=== PATIENT | male | born 1980 | race Caucasian/White ===

== ENCOUNTER 2021-09-06 17:12 | Emergency (ER) | payer MEDICAID ==
[~2021-09-06] VITALS: Ht 177.8 cm; Wt 86.2 kg
[~2021-09-06 17:12] MED LIST: AMOX-426 PO; DOCU-144 PO; IBUP-23 PO; SUMA100T PO; ZOLP10TA2 PO
[2021-09-06 17:30] VITALS: BP_SYST 146
--- NOTE | 2021-09-06 17:30 | NUR ---
Placed in room 2 . Placed on security monitor, blood pressure machine and pulse oximeter. To gown for exam. Side rails up. Report given to JERE YING.
--- NOTE | 2021-09-06 18:50 | NUR ---
Dr. Eddy at bedside.
--- NOTE | 2021-09-06 18:52 | NUR ---
lab at bedside
[2021-09-06] MEDS ORDERED: MORPHINE 4 MG INJ. 4 MG/ML VIAL IM ONE (19:00)
--- NOTE | 2021-09-06 19:08 | NUR ---
report to ladi brito
--- NOTE | 2021-09-06 19:08 | NUR ---
Pt AAOx4, verbalizes improvement in pain. No needs verbalized at this time.
[2021-09-06 19:22] LABS: BASOPHILS % (AUTO) 0.4 % (0.0-2.0); EOSINOPHILS # (AUTO) 0.1 K/uL (0.0-0.4); EOSINOPHILS % (AUTO) 0.6 % (0.0-4.0); HEMATOCRIT 42.7 % (36-54); HEMOGLOBIN 14.7 g/dL (14.0-18.0); LYMPHOCYTES # (AUTO) 2.1 K/uL (1.0-5.5); MEAN CORPUSCULAR HEMOGLOBIN 33 pg (27-31); MEAN CORPUSCULAR HGB CONC 35 % (32-36); MEAN CORPUSCULAR VOLUME 95 fL (79.0-98.0); MONOCYTES # (AUTO) 0.5 K/uL (0.0-1.0); MONOCYTES % (AUTO) 5.9 % (1.7-9.3); NEUTROPHILS # (AUTO) 6.3 K/uL (1.8-7.7); NEUTROPHILS % (AUTO) 70.1 % (40.0-70.0); PLATELET COUNT (AUTO) 297 K/uL (130-430); RED CELL DISTRIBUTION WIDTH 12.9 % (9.0-15.0)
[2021-09-06 19:38] LABS: PROTHROMBIN TIME 10.1 SECS (9.5-12.5)
[2021-09-06 19:40] LABS: CALCIUM 8.9 mg/dL (8.4-11.0); CREATININE 1.09 mg/dL (0.55-1.30); POTASSIUM 3.3 mmol/L (3.5-5.1)
[2021-09-06 19:46] LABS: ALBUMIN 4.5 g/dL (3.4-4.8); TOTAL BILIRUBIN 0.3 mg/dL (0.0-1.0)
[2021-09-06] MEDS ORDERED: OMEP20CA15 PO (20:11)
[2021-09-06] MEDS ORDERED: HYDR-3917 PO (20:11)
--- NOTE | 2021-09-06 20:34 | NUR ---
Patient given written and verbal discharge instructions and verbalizes understanding. ER MD discussed with patient the results and treatment provided. Patient in stable condition. ID arm band removed. Rx of norco and omeprazole sent electronically to preferred pharmacy. Patient educated on pain management and to follow up with PMD. Pain Scale 3/10. Opportunity for questions provided and answered. Medication side effect fact sheet provided.
[2021-09-07] VITALS: BP_SYST 121
--- NOTE | 2021-09-07 | NUR ---
Note niranjan in EDM - 09/07/21 at 0149 by [email or web address] Patient will be admitted to care of Dr. Sorto. Admitted to Tele unit. Will go to room 119B. Belongings list completed. Complete and up to date summary report printed. SBAR report to be given at bedside with opportunity for questions.
== END 2021-09-06 20:34 | disposition home or self-care (01) ==
LOC: MERGE 17:12 → SED 17:12
DX: K62.5 Hemorrhage of anus and rectum (principal); R10.84 Generalized abdominal pain
CPT/HCPCS: 36415; 74176; 76376; 80053; 82150; 83690; 85025; 85610; 85730; 86886; 86900; 86901; 96372; 99284; J2270

== ENCOUNTER 2021-10-23 06:17 | Emergency (ER) | payer MEDICAID ==
[~2021-10-23 06:17] MED LIST changes: +HYDR-3917 PO; +OMEP20CA15 PO
--- NOTE | 2021-10-23 07:00 | NUR ---
NO ANSWER LWBS
== END 2021-10-23 07:00 | disposition left against medical advice (07) ==
LOC: SED 06:17
DX: R53.1 Weakness (principal); Z53.21 Procedure and treatment not carried out due to patient leaving prior to being seen by health care provider

== ENCOUNTER 2021-10-24 15:39 | Emergency (ER) | payer MEDICAID, SELFPAY ==
[~2021-10-24] VITALS: Ht 177.8 cm; Wt 86.2 kg
[2021-10-24 15:41] VITALS: BP_SYST 145
--- NOTE | 2021-10-24 15:45 | NUR ---
Pt moved to bed 8 for evaluation.
--- NOTE | 2021-10-24 15:50 | NUR ---
Pt AAO and ambulatory reporting that he drank an entire botttle of nyquil otc over a 24 hour period. Pt reports feeling chills, anxiety, and stated that he took it because he wanted to sleep. Pt denies any suicidal ideation. Pt reports history of seizures. Pt also states that he was seen at [facility] yesterday for the same problem but left. Pt displaying restless and anxious type behavior. Denies history of psych.
--- NOTE | 2021-10-24 15:55 | NUR ---
Dr. Bruno to bedside to assess.
--- NOTE | 2021-10-24 16:10 | NUR ---
Lab at bedside for blood draw.
--- NOTE | 2021-10-24 16:15 | NUR ---
Urine specimen obtained and sent to lab for analysis.
[2021-10-24 16:25] LABS: ANION GAP 7 (5-15); CALCIUM 10.4 mg/dL (8.4-11.0); CHLORIDE 103 mmol/L (98-107); CREATININE 0.97 mg/dL (0.55-1.30); GLUCOSE 103 mg/dL (70-99); POTASSIUM 3.9 mmol/L (3.5-5.1); SODIUM SERUM 137 mmol/L (136-145); UREA NITROGEN, BLOOD 10 mg/dL (8-21)
[2021-10-24 16:31] LABS: ALANINE AMINOTRANSFERASE 46 U/L (12-78); ALBUMIN 4.6 g/dL (3.4-4.8); ALCOHOL, BLOOD 3 mg/dL (<10); ASPARTATE AMINOTRANSFERASE 29 U/L (10-37); TOTAL BILIRUBIN 0.4 mg/dL (0.0-1.0)
[2021-10-24 16:38] LABS: ACETAMINOPHEN < 1 ug/mL (1-30); GFR AFRICAN AMERICAN 111 mL/min (>90)
[2021-10-24] MEDS ORDERED: ALPRAZolam 0.25 MG TABLET PO ONE (17:15)
[2021-10-24 17:42] LABS: BARBITURATE, URINE NEGATIVE (NEG <=200); BENZODIAZEPINE, URINE NEGATIVE (NEG <=150); COCAINE, URINE NEGATIVE (NEG <=150); METHAMPHETAMINES SCREEN,URINE NEGATIVE (NEG <=500); URINE AMPHETAMINE NEGATIVE (NEG <=500); URINE METHADONE NEGATIVE (NEG <=200)
[2021-10-24 17:45] LABS: CANNABINOID, URINE POSITIVE (NEG <=50); OPIATE, URINE NEGATIVE (NEG <=100); PHENCYCLIDINE SCREEN,URINE NEGATIVE (NEG <=25); UR TRICYCLIC ANTIDEPRESSANTS NEGATIVE (NEG <=300); URINE OXYCODONE SCREEN NEGATIVE (NEG <=100); URINE PROPOXYPHENE SCREEN NEGATIVE (NEG <=300)
--- NOTE | 2021-10-24 18:30 | NUR ---
Pt reports feeling much better and is awaiting disposition.
[2021-10-24] MEDS ORDERED: ACETAMINOPHEN 325 MG TABLET PO ONE (18:45)
--- NOTE | 2021-10-24 18:51 | NUR ---
Pt given tylenol for headache pain-see NOV. Pt reports that anxiety has resolved. Pt awaiting disposition.
--- NOTE | 2021-10-24 19:14 | NUR ---
Report to JERE Waite.
[2021-10-24] MEDS ORDERED: NS 500 ML IV ONE (19:30)
[2021-10-24 20:25] VITALS: BP_SYST 150
--- NOTE | 2021-10-24 20:26 | NUR ---
Patient given written and verbal discharge instructions and verbalizes understanding. ER MD discussed with patient the results and treatment provided. Patient in stable condition. ID arm band removed. No Rx given. Patient educated on pain management and to follow up with PMD. Pain Scale 0/10. Opportunity for questions provided and answered. Medication side effect fact sheet provided.
[2021-10-24 22:04] LABS: BASOPHILS # (AUTO) 0.1 K/uL (0.0-0.2); BASOPHILS % (AUTO) 0.9 % (0.0-2.0); EOSINOPHILS # (AUTO) 0.1 K/uL (0.0-0.4); EOSINOPHILS % (AUTO) 0.6 % (0.0-4.0); HEMATOCRIT 49.7 % (36-54); HEMOGLOBIN 16.9 g/dL (14.0-18.0); LYMPHOCYTES # (AUTO) 2.3 K/uL (1.0-5.5); LYMPHOCYTES % (AUTO) 26.1 % (20.5-51.5); MEAN CORPUSCULAR HEMOGLOBIN 32 pg (27-31); MEAN CORPUSCULAR HGB CONC 34 % (32-36); MEAN CORPUSCULAR VOLUME 94 fL (79.0-98.0); MONOCYTES # (AUTO) 0.4 K/uL (0.0-1.0); NEUTROPHILS # (AUTO) 6.1 K/uL (1.8-7.7); NEUTROPHILS % (AUTO) 68.4 % (40.0-70.0); PLATELET COUNT (AUTO) 251 K/uL (130-430); RED BLOOD CELL COUNT(AUTO) 5.28 MIL/uL (4.2-6.2); RED CELL DISTRIBUTION WIDTH 12.7 % (9.0-15.0); WHITE BLOOD COUNT (AUTO) 8.9 K/uL (4.8-10.8)
== END 2021-10-24 20:25 | disposition home or self-care (01) ==
LOC: SED 15:39
DX: T45.0X4A Poisoning by antiallergic and antiemetic drugs, undetermined, initial encounter (principal); F41.9 Anxiety disorder, unspecified; F45.9 Somatoform disorder, unspecified; Z20.822 Contact with and (suspected) exposure to COVID-19; Z79.899 Other long term (current) drug therapy; Y93.9 Activity, unspecified; Y92.9 Unspecified place or not applicable; Y99.9 Unspecified external cause status
CPT/HCPCS: 36415; 80053; 80307; 85025; 87426; 93005; 99285; G0480; G0481; G0482

== ENCOUNTER 2022-02-03 03:43 | Emergency (ER) | payer MEDICAID ==
[~2022-02-03] VITALS: Ht 175.3 cm; Wt 79.4 kg
--- NOTE | 2022-02-03 04:04 | NUR ---
Patient to ER bed 2 to gown for evaluation. Side rails up. Report given to MARCO ANTONIO OQUENDO
--- NOTE | 2022-02-03 04:24 | NUR ---
DR PETERSON IN ROOM FOR EXAM
[2022-02-03] MEDS ORDERED: PANTOPRAZOLE SODIUM 40 MG/VIAL (PROTONIX) IVP ONE (04:30)
[2022-02-03] MEDS ORDERED: NACL 0.9% 1,000 ML IV ONE (04:30)
[2022-02-03] MEDS ORDERED: METOCLOPRAMIDE HCL 10 MG/2 ML VIAL IVP ONE (04:30)
[2022-02-03] MEDS ORDERED: MORPHINE 4 MG INJ. 4 MG/ML VIAL IVP ONE (04:30)
--- NOTE | 2022-02-03 04:30 | NUR ---
Initial assessment by JERE So 41yo male PMH hernia, Etoh user, here c/o abd spasm pain 04/08. Poor historian. Pt appears anxious, continue with generalized body shaking. + hand tremors, + tongue fasciculation. Last alcohol intake 2 days ago. Afib on monitor with HR 89-130. Tachypneic RR 33 in room air. Diaphoretic. Temp 97.2. tender and guarding to abd. MD Miguel at bedside. Pending MD burger. Will continue to monitor. Addendum: 02/03/22 at 0507 by [email or web address] HR on monitor Ammended by JERE So Noted multiple artifacts on heart rhythm due to pt continuously have generalized body shaking movement.
[2022-02-03] MEDS ORDERED: LORazepam 2 MG/ML VIAL IVP ONE ×2 (05:00→07:00)
[2022-02-03 05:16] LABS: CALCIUM 9.3 mg/dL (8.4-11.0); CREATININE 1.53 mg/dL (0.55-1.30); POTASSIUM 3.3 mmol/L (3.5-5.1)
[2022-02-03 05:22] LABS: ALBUMIN 4.2 g/dL (3.4-4.8); TOTAL BILIRUBIN 0.8 mg/dL (0.0-1.0)
[2022-02-03 06:02] LABS: BASOPHILS # (AUTO) 0.1 K/uL (0.0-0.2); BASOPHILS % (AUTO) 0.7 % (0.0-2.0); EOSINOPHILS # (AUTO) 0.3 K/uL (0.0-0.4); EOSINOPHILS % (AUTO) 3.2 % (0.0-4.0); HEMATOCRIT 50.6 % (36-54); HEMOGLOBIN 17.6 g/dL (14.0-18.0); LYMPHOCYTES # (AUTO) 3.4 K/uL (1.0-5.5); LYMPHOCYTES % (AUTO) 39.4 % (20.5-51.5); MEAN CORPUSCULAR HEMOGLOBIN 34 pg (27-31); MEAN CORPUSCULAR HGB CONC 35 % (32-36); MEAN CORPUSCULAR VOLUME 97 fL (79.0-98.0); MONOCYTES # (AUTO) 0.7 K/uL (0.0-1.0); MONOCYTES % (AUTO) 8.4 % (1.7-9.3); NEUTROPHILS # (AUTO) 4.2 K/uL (1.8-7.7); NEUTROPHILS % (AUTO) 48.3 % (40.0-70.0); PLATELET COUNT (AUTO) 313 K/uL (130-430); RED BLOOD CELL COUNT(AUTO) 5.24 MIL/uL (4.2-6.2); RED CELL DISTRIBUTION WIDTH 13.7 % (9.0-15.0); WHITE BLOOD COUNT (AUTO) 8.6 K/uL (4.8-10.8)
--- NOTE | 2022-02-03 06:20 | NUR ---
Reassessment by JERE So Pt awake, alert, calm, and stated feels better. Denies any pain at this time. Non diaphoretic. Currently pt is off unit, taken for CT abd/ pelvis.
[2022-02-03] MEDS ORDERED: chlordiazePOXIDE HCL 25 MG CAPSULE PO ONE (07:00)
[2022-02-03] MEDS ORDERED: POTASSIUM CHLORIDE 20 MEQ TAB.PRT.SR PO ONE (07:00)
[2022-02-03 07:11] LABS: HEMATOCRIT 42.6 % (36-54); HEMOGLOBIN 14.8 g/dL (14.0-18.0); MEAN CORPUSCULAR HEMOGLOBIN 34 pg (27-31); MEAN CORPUSCULAR HGB CONC 35 % (32-36); MEAN CORPUSCULAR VOLUME 97 fL (79.0-98.0); PLATELET COUNT (AUTO) 258 K/uL (130-430); RED CELL DISTRIBUTION WIDTH 13.5 % (9.0-15.0); WHITE BLOOD COUNT (AUTO) 7.5 K/uL (4.8-10.8)
--- NOTE | 2022-02-03 07:17 | NUR ---
Report was given to JERE Kraft
--- NOTE | 2022-02-03 08:48 | NUR ---
Stable in ER 2 Mild S/S of ETOH withdrawal Medicated as ordered
[2022-02-03 11:23] LABS: HEMATOCRIT 46.3 % (36-54); HEMOGLOBIN 15.9 g/dL (14.0-18.0); MEAN CORPUSCULAR HEMOGLOBIN 34 pg (27-31); MEAN CORPUSCULAR HGB CONC 34 % (32-36); MEAN CORPUSCULAR VOLUME 98 fL (79.0-98.0); PLATELET COUNT (AUTO) 252 K/uL (130-430); RED BLOOD CELL COUNT(AUTO) 4.73 MIL/uL (4.2-6.2); RED CELL DISTRIBUTION WIDTH 13.5 % (9.0-15.0); WHITE BLOOD COUNT (AUTO) 6.6 K/uL (4.8-10.8)
--- NOTE | 2022-02-03 13:16 | NUR ---
Stable VSS No S/S of ETOH withdrawal To be admitted Awaiting insurance
--- NOTE | 2022-02-03 13:39 | NUR ---
insurance authorization to stay given for bed 2
[2022-02-03 14:31] LABS: HEMATOCRIT 44.9 % (36-54); HEMOGLOBIN 15.7 g/dL (14.0-18.0); MEAN CORPUSCULAR HEMOGLOBIN 34 pg (27-31); MEAN CORPUSCULAR HGB CONC 35 % (32-36); MEAN CORPUSCULAR VOLUME 97 fL (79.0-98.0); PLATELET COUNT (AUTO) 254 K/uL (130-430); RED BLOOD CELL COUNT(AUTO) 4.63 MIL/uL (4.2-6.2); RED CELL DISTRIBUTION WIDTH 13.4 % (9.0-15.0); WHITE BLOOD COUNT (AUTO) 5.6 K/uL (4.8-10.8)
[2022-02-03 15:13] VITALS: BP_SYST 156
--- NOTE | 2022-02-03 15:14 | NUR ---
Stable VSS MD has reassessed and Dc'd home To exit
== END 2022-02-03 15:14 | disposition home or self-care (01) ==
LOC: SED 03:43
DX: R10.11 Right upper quadrant pain (principal); I10 Essential (primary) hypertension; Z79.899 Other long term (current) drug therapy; Z20.822 Contact with and (suspected) exposure to COVID-19
CPT/HCPCS: 36415; 74177; 76376; 80053; 83051; 83690; 85014; 85025; 85048; 85049; 86886; 86900; 86901; 87426; 96361; 96374; 96375; 99285; C9113; G0482; J2060; J2270; J2765; J7030; Q9967

== ENCOUNTER 2022-05-05 15:26 | Emergency (ER) | payer MEDICAID ==
--- NOTE | 2022-05-05 15:47 | NUR ---
CALLED FOR TRIAGE. NOT IN WAITING ROOM
--- NOTE | 2022-05-05 16:27 | NUR ---
CALLED TO TRIAGE NO ANSWER
--- NOTE | 2022-05-05 16:39 | NUR ---
CALLED FOR TRIAGE NO ANSWER. PATIENT LEFT WITHOUT BEING SEEN
== END 2022-05-05 16:39 | disposition left against medical advice (07) ==
LOC: SED 15:26
DX: R10.9 Unspecified abdominal pain (principal); Z53.21 Procedure and treatment not carried out due to patient leaving prior to being seen by health care provider

== ENCOUNTER 2022-05-10 11:29 | Emergency (ER) | payer MEDICAID ==
[~2022-05-10] VITALS: Ht 177.8 cm; Wt 86.2 kg
[2022-05-10 11:43] VITALS: BP_SYST 125
--- NOTE | 2022-05-10 14:02 | NUR ---
DR REILLY OUT TO WAITING ROOM TO EVALUATE PT. PT WAS IN RESTROOM.
--- NOTE | 2022-05-10 14:15 | NUR ---
PT REMAINS IN RESTROOM, PT STATES HE IS OK.
--- NOTE | 2022-05-10 14:32 | NUR ---
PT LEFT ER WAITING ROOM AND LWBS
== END 2022-05-10 14:32 | disposition left against medical advice (07) ==
LOC: SED 11:29
DX: R10.9 Unspecified abdominal pain (principal); Z53.21 Procedure and treatment not carried out due to patient leaving prior to being seen by health care provider

== ENCOUNTER 2022-08-17 00:38 | Emergency (ER) | payer MEDICAID ==
[~2022-08-17] VITALS: Ht 177.8 cm; Wt 90.7 kg
[2022-08-17 00:50] VITALS: BP_SYST 129
--- NOTE | 2022-08-17 00:50 | NUR ---
Patient to ER bed 01 to gown for evaluation. Side rails up. Report given to TERRA OQUENDO.
--- NOTE | 2022-08-17 00:58 | NUR ---
ER at bedside examining patient.
[2022-08-17] MEDS ORDERED: DIPHENHYDRAMINE HCL 25 MG CAPSULE PO ONE (01:00)
[2022-08-17] MEDS ORDERED: DIPHENHYDRAMINE HCL 50 MG CAPSULE ONE (01:03)
[2022-08-17] MEDS ORDERED: VIS25 PO (01:20)
--- NOTE | 2022-08-17 01:32 | NUR ---
Pt bib with c/o of taking amitriptyline coated with eucaliptine guayacol and now feels sob. 02 at 99%. Pt has history of HTN. No other symptoms reported.
--- NOTE | 2022-08-17 01:47 | NUR ---
Patient given written and verbal discharge instructions and verbalizes understanding. ER MD discussed with patient the results and treatment provided. Patient in stable condition. ID arm band removed. Rx of hYDROXYZINE PAMOATE given. Patient educated on pain management and to follow up with PMD. Pain Scale 0/10. Opportunity for questions provided and answered. Medication side effect fact sheet provided.
[2022-08-17 01:48] VITALS: BP_SYST 127
== END 2022-08-17 01:48 | disposition home or self-care (01) ==
LOC: SED 00:38
DX: R06.02 Shortness of breath (principal); F41.9 Anxiety disorder, unspecified; R11.0 Nausea; I10 Essential (primary) hypertension; Z79.899 Other long term (current) drug therapy
CPT/HCPCS: 99282; Q0163